=== PATIENT | male | born 1995 | race Caucasian/White ===

== ENCOUNTER 2016-12-26 03:02 | Emergency (ER) | payer OTHER ==
[~2016-12-26] VITALS: Ht 167.6 cm; Wt 75.0 kg
[~2016-12-26 03:02] MED LIST: CETI10 PO; CETI1TAB21 PO; PRED10PA PO; ZOFR4TAB3 SL
[2016-12-26 03:10] VITALS: BP 154/90; PULSE 84; RESP 16; TEMP 98.4; O2SAT 98
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
[2016-12-26] MEDS ORDERED: TETANUS/DIPHTHERIA TOXOID ADULT 0.5 ML VIAL IM ONE (03:30)
[2016-12-26] MEDS ORDERED: LIDOCAINE 1%/EPINEPHrine 1:100,000 SOLN 20 ML VIAL INFIL ONE (03:30)
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
--- NOTE | 2016-12-26 03:56 | PD ---
Physical Exam Time Seen by Provider: 03:40 Data Data Last Documented VS Vital Signs Date Time Temp Pulse Resp B/P Pulse Ox O2 Delivery O2 Flow Rate FiO2 12/26/16 03:10 98.4 84 16 154/[address] Brain W/O Iv Contrast(Rout) (12/26/16 03:10) Ct Cerv Spine W/O Contrast (12/26/16 03:10) Lidocai-Epi 1%-1:100,000 Inj (Xylocaine- (12/26/16 03:30) Tetanus/Diphtheria Tox Adult (Tetanus/Di (12/26/16 03:30) Ketorolac Inj (Toradol Inj) (12/26/16 04:00) MDM Medical Record Reviewed: Yes Supervised Visit with TERI: No Narrative Course The patient verbally consents laceration repair. Procedures Procedure Narrative LACERATION LOCATION: Right eyelid LENGTH: 1 cm NUMBER OF STITCHES/SUHA: 3 REPAIR: The area of the laceration was prepped with Betadine and sterilely draped. The laceration was infiltrated with 1% lidocaine with epinephrine. The wound was copiously irrigated and explored without evidence of foreign body , tendon injury or neurovascular injury. The wound was closed using 6-0 vicryl simple interrupted. This was a single layer repair. A sterile dressing was applied. The patient was advised to keep the dressing clean and dry. Patient tolerated the procedure well. Diagnosis Primary Impression: Laceration, eyelid, right Qualified Code: S01.111A - Laceration, eyelid, right, initial encounter Additional Impressions: Cervical strain Qualified Code: S16.1XXA - Cervical strain, initial encounter Closed head injury Qualified Code: S09.90XA - Closed head injury, initial encounter Patient Instructions: General Instructions Departure Forms: Tests/Procedures Additional Instruction: Wound care daily. Take medication as needed for pain. Head trauma instructions given. Follow-up with personal physician. Return if worse. Return immediately if weakness and numbness of the extremity. Scripts Hydrocodone-Acetaminophen ([place])5-325 mg Tab1 Tab PO Q6H PRN (PAIN) #20 TAB Ref 0 Prov:Francesco Torres MD 12/26/16 Methocarbamol (Robaxin)750 Mg Sml644 Mg PO QID #40 TAB Ref 0 Prov:Francesco Torres MD 12/26/16 Meloxicam (Mobic)15 Mg Tab15 Mg PO DAILY #20 TAB Prov:Francesco Torres MD 12/26/16 Disposition: 01 DISCHARGE HOME Condition: Stable Balaji Page Dec 26, 2016 03:56
[2016-12-26] MEDS ORDERED: KETOROLAC TROMETHAMINE 60 MG/2 ML (IM) VIAL IM ONE (04:00)
[2016-12-26] MEDS ORDERED: ROBA750T PO (04:01)
[2016-12-26] MEDS ORDERED: MOBI15TA PO (04:01)
[2016-12-26] MEDS ORDERED: NORC5TAB PO (04:01)
== END 2016-12-26 04:29 | disposition home or self-care (01) ==
LOC: NEPE 03:02
DX: S01.111A Laceration without foreign body of right eyelid and periocular area, initial encounter (principal); S16.1XXA Strain of muscle, fascia and tendon at neck level, initial encounter; S09.90XA Unspecified injury of head, initial encounter; V47.5XXA Car driver injured in collision with fixed or stationary object in traffic accident, initial encounter; V43.52XA Car driver injured in collision with other type car in traffic accident, initial encounter; Y93.89 Activity, other specified; Y92.410 Unspecified street and highway as the place of occurrence of the external cause; Y99.9 Unspecified external cause status
CPT/HCPCS: 12011; 70450; 72125; 90471; 90714; 96372; 99284; J1885